=== PATIENT | female | born 1985 | race Caucasian/White ===

== ENCOUNTER 2018-04-28 11:58 | Emergency (ER) | payer MEDICAID ==
[~2018-04-28] VITALS: Ht 160 cm; Wt 83.9 kg
[2018-04-28 12:27] VITALS: BP_SYST 135
[2018-04-28] MEDS ORDERED: ACETAMINOPHEN 500 MG TABLET PO ONE (13:00)
[2018-04-28 13:54] VITALS: BP_SYST 130
== END 2018-04-28 13:54 | disposition home or self-care (01) ==
LOC: SED 11:58
DX: O26.893 Other specified pregnancy related conditions, third trimester (principal); R11.0 Nausea; R03.0 Elevated blood-pressure reading, without diagnosis of hypertension
CPT/HCPCS: 99282